=== PATIENT | male | born 1960 | race Caucasian/White ===

== ENCOUNTER 2018-07-15 05:40 | Emergency (ER) | payer OTHER ==
--- NOTE | 2018-07-15 06:40 | ED Physician Documentation ---
History of Present Illness - Stated complaint Stated Complaint: NECK BURNING - Chief complaint Chief Complaint: General - History obtained from History obtained from: Patient - History of Present Illness Timing: How many days ago (2) Improved by: no ameliorating factors Worsened by: no exacerbating factors - Additonal information Additional information: c/o burning rash to back of neck x 2 days, started after working during the day with neckerchief around his neck; he was sweating and it was raining that day. Review of Systems Constitutional: denies: Fever Skin: reports: Rash PD PAST MEDICAL HISTORY - Past Medical History Past Medical History: No Cardiovascular: None Respiratory: None Neuro: None Endocrine/Autoimmune: None GI: None : None HEENT: None Psych: None Musculoskeletal: None Derm: None - Past Surgical History Past Surgical History: No - Present Medications Home Medications: Ambulatory Orders Medication Instructions Recorded Confirmed Cephalexin [Keflex] 500 mg PO Q6HR #27 capsule 07/15/18 Triamcinolone 0.5% Cream [Kenalog 1 film TOP BID #1 tube 07/15/18 0.5% Cream] - Allergies Allergies/Adverse Reactions: Allergies Allergy/AdvReac Type Severity Reaction Status Date / Time No Known Drug Allergies Allergy Verified 07/15/18 05:50 - Social History Does the pt smoke?: Yes Smoking Status: Current every day smoker Does the pt drink ETOH?: Yes Does the pt have substance abuse?: No - Immunizations Immunizations are current?: Yes - POLST Patient has POLST: No PD ED PE NORMAL - Vitals Vital signs reviewed: Yes - General General: Alert and oriented X 3, No acute distress, Well developed/nourished PD ED PE EXPANDED - Derm Derm: Other (confluent erythema on posterior aspect of lower neck with sharp margins, crosses midline. nontender) Results - Vitals Vitals: Oxygen O2 Source Room air PD MEDICAL DECISION MAKING - ED course Complexity details: considered differential, d/w patient ED course: rash is in area that would have been in contact with neckerchief and appearance is c/w irritant dermatitis; does not appear c/w cellulitis or zoster. Departure - Departure Disposition: 01 Home, Self Care Clinical Impression: Irritant dermatitis Condition: Good Instructions: ED Dermatitis Contact, ED Dermatitis Non Specific Rash Prescriptions: Cephalexin [Keflex] 500 mg PO Q6HR #27 capsule Triamcinolone 0.5% Cream [Kenalog 0.5% Cream] 1 film TOP BID #1 tube Discharge Date/Time: 07/15/18 07:37
[2018-07-15] MEDS ORDERED: cephALEXin 250 MG CAPSULE PO STA (07:08)
[2018-07-15 07:37] VITALS: BP 166/113
== END 2018-07-15 07:37 | disposition home or self-care (01) ==
LOC: ED 05:40
DX: L24.9 Irritant contact dermatitis, unspecified cause (principal); F17.200 Nicotine dependence, unspecified, uncomplicated
CPT/HCPCS: 99283; A9270

== ENCOUNTER 2019-04-14 11:25 | Outpatient (CLI) | payer OTHER | END 2019-04-14 11:26 | disposition EMS.NT | LOC: EMS 11:25 | PROVIDERS: ATTEND Surgery | DX: R41.0 Disorientation, unspecified (principal) ==

== ENCOUNTER 2019-04-14 12:25 | Emergency (ER) | payer OTHER ==
[2019-04-14 12:55] LABS: MUDS CUTOFF CONCENTRATIONS CUTOFF CONC BELOW:
[2019-04-14 12:57] LABS: BILIRUBIN,URINE NEGATIVE (NEGATIVE); GLUCOSE, URINE (UA) NEGATIVE (NEGATIVE); KETONES,URINE (UA) NEGATIVE (NEGATIVE); LEUKOCYTE ESTERASE, URINE NEGATIVE (NEGATIVE); NITRITE,URINE NEGATIVE (NEGATIVE); OCCULT BLOOD,URINE TRACE-LYSE (NEGATIVE); PROTEIN,URINE NEGATIVE (NEGATIVE); UROBILINOGEN,URINE 0.2 (NORMAL) E.U./dL (NORMAL)
[2019-04-14 12:58] LABS: CLARITY,URINE CLEAR (CLEAR)
[2019-04-14 13:05] LABS: AMPHETAMINE SCREEN,URINE NEGATIVE (NEGATIVE); BENZODIAZEPINES SCREEN, URINE NEGATIVE (NEGATIVE); COCAINE SCREEN URINE NEGATIVE (NEGATIVE); METHADONE SCREEN, URINE NEGATIVE (NEGATIVE); METHAMPHETAMINES SCREEN, URINE NEGATIVE (NEGATIVE); OPIATE SCREEN, URINE NEGATIVE (NEGATIVE); OXYCODONE SCREEN, URINE NEGATIVE (NEGATIVE); PROPOXYPHENE SCREEN, URINE NEGATIVE (NEGATIVE); TRICYCLIC ANTIDEPRESSANT,URINE NEGATIVE (NEGATIVE)
--- NOTE | 2019-04-14 13:05 | ED Physician Documentation ---
PD HPI ALTERED MENTAL STATUS - Stated complaint Stated Complaint: AMNESIA - Chief complaint Chief Complaint: Neuro - History obtained from History obtained from: Patient, EMS - History of Present Illness Timing - onset: Today Timing - duration: Days (1) Timing - details: Now resolved Quality / character: Confused, Disoriented, Memory Loss Associated symptoms: No: Fever, Headache, Stiff neck, Dyspnea, Cough, NVD, Urinary sx, General weakness, Focal weakness, Seizure activity, Syncope Contributing factors: Known psych illness (possible schizoaffective disorder vs "disorientation syndrome") Basline status: Alert and oriented X 3 Recently seen: Not recently seen - Additional information Additional information: 58-year-old male was at the gym this morning and found wandering and dis oriented. EMS was called and he was brought here. He appears to be improving at this time. He states similar symptoms in the past with what [facility] describes as [facility]. 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 No focal neurological deficits. No headache. No trauma. Denies any illicit substance use. No recent alcohol. Review of Systems Ten Systems: 10 systems reviewed and negative Constitutional: denies: Fever, Chills Nose: denies: Rhinorrhea / runny nose Throat: denies: Sore throat Respiratory: denies: Cough GI: denies: Abdominal Pain, Nausea, Vomiting, Diarrhea Skin: denies: Rash Musculoskeletal: denies: Neck pain, Back pain Neurologic: denies: Focal weakness, Numbness, Seizure, Headache PD PAST MEDICAL HISTORY - Past Medical History Cardiovascular: None Respiratory: None Neuro: None Endocrine/Autoimmune: None GI: None : None HEENT: None Psych: None Musculoskeletal: None Derm: None Other Past Medical History: "disorientation disorder" and HTN - Past Surgical History Past Surgical History: No - Present Medications Home Medications: Ambulatory Orders Medication Instructions Recorded Confirmed Cephalexin [Keflex] 500 mg PO Q6HR #27 capsule 07/15/18 Triamcinolone 0.5% Cream [Kenalog 1 film TOP BID #1 tube 07/15/18 0.5% Cream] - Allergies Allergies/Adverse Reactions: Allergies Allergy/AdvReac Type Severity Reaction Status Date / Time No Known Drug Allergies Allergy Verified 04/14/19 12:33 - Social History Does the pt smoke?: Yes Smoking Status: Current every day smoker Does the pt drink ETOH?: Yes Does the pt have substance abuse?: No - Immunizations Immunizations are current?: Yes - POLST Patient has POLST: No PD ED PE NORMAL - Vitals Vital signs reviewed: Yes - General General: Alert and oriented X 3, No acute distress, Well developed/nourished - HEENT HEENT: Atraumatic, PERRL, Ears normal, Moist mucous membranes, Pharynx benign - Neck Neck: Supple, no meningeal sign, No bony TTP - Cardiac Cardiac: RRR, Strong equal pulses - Respiratory Respiratory: No respiratory distress, Clear bilaterally - Abdomen Abdomen: Soft, Non tender, Non distended - Back Back: No spinal TTP - Derm Derm: Warm and dry - Extremities Extremities: No tenderness to palpate, No edema, No calf tenderness / cord - Neuro Neuro: Alert and oriented X 3, 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, No motor deficit, No sensory deficit, Normal speech Eye Opening: Spontaneous Motor: Obeys Commands Verbal: Oriented GCS Score: 15 - Psych Psych: Normal mood, Normal affect - Free text exam Free text exam: NIHSS 0 Results - Vitals Vitals: Vital Signs - 24 hr 04/14/19 04/14/19 12:27 13:45 Temperature 36.1 C L Heart Rate 95 87 Respiratory 16 19 Rate Blood Pressure 170/106 H 147/78 H O2 Saturation 95 99 Oxygen O2 Source Room air - EKG (time done) 1316 Rate: Rate (enter#) (87) Rhythm: NSR [place]: Normal Intervals: 1st degree AVB QRS: Normal Ischemia: Normal ST segments - Labs Labs: Laboratory Tests 04/14/19 04/14/19 04/14/19 12:46 12:59 12:59 WBC 9.4 RBC 5.29 Hgb 16.0 Hct 46.4 MCV 87.7 MCH 30.2 MCHC 34.5 RDW 12.7 Plt Count 196 MPV 10.9 Neut # (Auto) 7.6 H Lymph # (Auto) 1.1 L [place] # (Auto) 0.6 Eos # (Auto) 0.0 Baso # (Auto) 0.0 Absolute Nucleated RBC 0.00 Nucleated RBC % 0.0 Sodium 140 Potassium 4.0 Chloride 106 Carbon Dioxide 21 Anion Gap 13.0 BUN 16 Creatinine 1.2 Estimated GFR (MDRD) 62 L Glucose 107 H Calcium 9.0 Total Bilirubin 0.9 AST 33 ALT 30 Alkaline Phosphatase 74 Total Protein 6.8 Albumin 4.1 Globulin 2.7 Albumin/Globulin Ratio 1.5 Lipase 33 TSH Urine Color YELLOW Urine Clarity CLEAR Urine pH 7.0 Ur Specific [place] <=1.005 Urine Protein NEGATIVE Urine Glucose (UA) NEGATIVE Urine Ketones NEGATIVE Urine Occult Blood TRACE-LYSE Urine Nitrite NEGATIVE Urine Bilirubin NEGATIVE Urine Urobilinogen 0.2 (NORMAL) Ur Leukocyte Esterase NEGATIVE Ur Microscopic Review NOT INDICATED Urine Culture Comments NOT INDICATED Salicylates < 6.0 Urine Opiates Screen NEGATIVE Ur Oxycodone Screen NEGATIVE Urine Methadone Screen NEGATIVE Ur Propoxyphene Screen NEGATIVE Acetaminophen < 10 L Ur Barbiturates Screen NEGATIVE Ur Tricyclics Screen NEGATIVE Ur Phencyclidine Scrn NEGATIVE Ur Amphetamine Screen NEGATIVE U Methamphetamines Scrn NEGATIVE U Benzodiazepines Scrn NEGATIVE Urine Cocaine Screen NEGATIVE U Cannabinoids Screen NEGATIVE Ethyl Alcohol < 5.0 04/14/19 12:59 WBC RBC Hgb Hct MCV MCH MCHC RDW Plt Count MPV Neut # (Auto) Lymph # (Auto) [place] # (Auto) Eos # (Auto) Baso # (Auto) Absolute Nucleated RBC Nucleated RBC % Sodium Potassium Chloride Carbon Dioxide Anion Gap BUN Creatinine Estimated GFR (MDRD) Glucose Calcium Total Bilirubin AST ALT Alkaline Phosphatase Total Protein Albumin Globulin Albumin/Globulin Ratio Lipase TSH 0.94 Urine Color Urine Clarity Urine pH Ur Specific [place] Urine Protein Urine Glucose (UA) Urine Ketones Urine Occult Blood Urine Nitrite Urine Bilirubin Urine Urobilinogen Ur Leukocyte Esterase Ur Microscopic Review Urine Culture Comments Salicylates Urine Opiates Screen Ur Oxycodone Screen Urine Methadone Screen Ur Propoxyphene Screen Acetaminophen Ur Barbiturates Screen Ur Tricyclics Screen Ur Phencyclidine Scrn Ur Amphetamine Screen U Methamphetamines Scrn U Benzodiazepines Scrn Urine Cocaine Screen U Cannabinoids Screen Ethyl Alcohol - Rads (name of study) head CT Radiology: Prelim report reviewed, EMP read contemporaneously, See rad report (No acute abnormality) PD MEDICAL DECISION MAKING - ED course Complexity details: reviewed results, re-evaluated patient, considered differential (No TIA, no stroke, no intoxication, no injury), d/w patient ED course: MRI not available today. Patient appears to have had an episode of transient global amnesia. Appears to be back to his baseline. Patient would like to go home at this time. We will have him follow-up with his doctor for further care. No focal neurological deficits. Normal repeat neurological examination. No acute findings on laboratory testing. Patient counseled regarding signs and symptoms for which I believe and urgent re-evaluation would be necessary. Patient with good understanding of and agreement to plan and is comfortable going home at this time This document was made in part using voice recognition software. While efforts are made to proofread this document, sound alike and grammatical errors may occur. Departure - Departure Disposition: 01 Home, Self Care Clinical Impression: Transient global amnesia Condition: Good Instructions: ED Altered Loc Follow-Up: your,doctor in 3 days [Other] Comments: You appear to have had an episode of transient global amnesia. You should follow-up with your doctor for an MRI within the next 3 days. Return if you worsen.
[2019-04-14 13:08] LABS: BASOPHILS % (AUTO) 0.4 %; EOSINOPHILS % (AUTO) 0.4 %; LYMPHOCYTES # (AUTO) 1.1 10^3/uL (1.5-3.5); LYMPHOCYTES % (AUTO) 11.7 %; MEAN CORPUSCULAR HEMOGLOBIN 30.2 pg (27.0-31.0); MEAN CORPUSCULAR HGB CONC 34.5 g/dL (32.0-36.0); MEAN CORPUSCULAR VOLUME 87.7 fL (80.0-94.0); MEAN PLATELET VOLUME 10.9 fL (7.4-11.4); MONOCYTES # (AUTO) 0.6 10^3/uL (0.0-1.0); MONOCYTES % (AUTO) 6.2 %; NEUTROPHILS # (AUTO) 7.6 10^3/uL (1.5-6.6); NEUTROPHILS % (AUTO) 80.8 %; PLT - PLATELET COUNT 196 10^3/uL (130-450); RED BLOOD COUNT 5.29 10^6/uL (4.70-6.10); RED CELL DISTRIBUTION WIDTH 12.7 % (12.0-15.0); WHITE BLOOD COUNT 9.4 x10^3/uL (4.8-10.8)
[2019-04-14 13:23] LABS: ACETAMINOPHEN < 10 ug/mL (10-30); ALBUMIN 4.1 g/dL (3.2-5.5); ALBUMIN/GLOBULIN RATIO 1.5 (1.0-2.2); ALKALINE PHOSPHATASE 74 IU/L (42-121); ALT ALANINE AMINOTRANSFERASE 30 IU/L (10-60); AST ASPARTATE AMINOTRANSFERASE 33 IU/L (10-42); BILIRUBIN,TOTAL 0.9 mg/dL (0.2-1.0); BUN - BLOOD UREA NITROGEN 16 mg/dL (6-20); CARBON DIOXIDE - CO2 21 mmol/L (21-32); CHLORIDE 106 mmol/L (101-111); CREATININE 1.2 mg/dL (0.6-1.2); GFR - MDRD 62 (>89); GLUCOSE 107 mg/dL (70-100); LIPASE 33 U/L (22-51); SALICYLATE < 6.0 mg/dL; SODIUM 140 mmol/L (135-145); TOTAL PROTEIN 6.8 g/dL (6.7-8.2)
--- NOTE | 2019-04-14 13:31 | CT Report ---
Reason: aloc Procedure Date: 04/14/2019 Accession Number: [id number] / [id number] Procedure: CT - HEAD WO CPT Code: FULL RESULT: EXAM: CT HEAD EXAM DATE: 04/14/2019 01:11 PM. CLINICAL HISTORY: Aloc. COMPARISON: None. TECHNIQUE: Multiaxial CT images were obtained from the foramen magnum to the vertex. Reformats: Sagittal and coronal. IV contrast: None. In accordance with CT protocol optimization, one or more of the following dose reduction techniques were utilized for this exam: automated exposure control, adjustment of mA and/or KV based on patient size, or use of iterative reconstructive technique. FINDINGS: The bilateral mastoid air cells are normally aerated. The imaged portions of the paranasal sinuses are normally aerated. There is no acute fracture of the calvaria. The imaged portions of the orbits are normal in appearance. There is no acute collection of blood or blood products, or mass. There is no midline shift. The rivera-white differentiation remains distinct. Cerebral volume and ventricular size are normal. IMPRESSION: 1. There is no acute intracranial abnormality.
[2019-04-14 13:49] VITALS: BP 147/78
[2019-04-14] MEDS ORDERED: THIAMINE INJ 100 MG in SODIUM CHLORIDE 0.9% 50 ML IV STA (14:18)
== END 2019-04-14 19:37 | disposition home or self-care (01) ==
LOC: EDUNIT# → ED 12:25
DX: G45.4 Transient global amnesia (principal); F25.9 Schizoaffective disorder, unspecified; I44.0 Atrioventricular block, first degree; I10 Essential (primary) hypertension; F17.200 Nicotine dependence, unspecified, uncomplicated
CPT/HCPCS: 36415; 70450; 80320; 80329; 81003; 83690; 93005; 96365; 99284; 99285; J3411; J7040; 80053; 80306; 80307; 81001; 84443; 85025; 87086